=== PATIENT | female | born 1960 | race Caucasian/White ===

== ENCOUNTER 2020-06-26 07:30 | Emergency (ER) | payer OTHER ==
--- NOTE | 2020-06-26 07:39 | ED Physician Documentation ---
PD HPI FEMALE - Stated complaint Stated Complaint: FEMALE - History obtained from History obtained from: Patient - History of Present Illness Timing - onset: Today, Last night Timing - details: Abrupt onset Associated symptoms: Dysuria, Hematuria. No: Fever Contributing factors: No: Exposed to STD Similar symptoms before: Diagnosis (infrequent UTIs) Recently seen: Clinic (10 days ago, had similar symptoms without as much blood in seen at an urgent care in [place]. Prescribed Macrobid twice daily for a week and was improved and now symptoms back again after 3 days off the antibiotic.) Review of Systems Constitutional: denies: Fever, Chills, Myalgias GI: reports: Nausea. denies: Vomiting, Diarrhea : reports: Dysuria, Hematuria. denies: Discharge PD PAST MEDICAL HISTORY - Past Medical History Cardiovascular: None Respiratory: None Endocrine/Autoimmune: None GI: None - Present Medications Home Medications: Ambulatory Orders Medication Instructions Recorded Confirmed Cephalexin [Keflex] 500 mg PO TID #20 capsule 06/26/20 Phenazopyridine HCl [Pyridium] 100 mg PO TID PRN #15 tablet 06/26/20 - Allergies Allergies/Adverse Reactions: Allergies Allergy/AdvReac Type Severity Reaction Status Date / Time Sulfa (Sulfonamide Allergy Hives Verified 06/26/20 07:47 Antibiotics) PD ED PE NORMAL - Vitals Vital signs reviewed: Yes - General General: Alert and oriented X 3, No acute distress, Well developed/nourished - Abdomen Abdomen: Soft, Non tender - Back Back: No CVA TTP - Derm Derm: Normal color, Warm and dry - Extremities Extremities: No deformity, Normal ROM s pain - Neuro Neuro: Alert and oriented X 3, No motor deficit, Normal speech Results - Vitals Vitals: Vital Signs - 24 hr 06/26/20 06/26/20 07:43 07:49 Temperature 36.4 C L 36.4 C L Heart Rate 63 65 Respiratory 16 16 Rate Blood Pressure 145/84 H 145/84 H O2 Saturation 100 100 Oxygen O2 Source Room air - Labs Labs: Laboratory Tests 06/26/20 07:50 Urine Color RED/BLOODY Urine Clarity CLOUDY Urine pH 7.5 Ur Specific [place] 1.010 Urine Protein 100 H Urine Glucose (UA) NEGATIVE Urine Ketones NEGATIVE Urine Occult Blood LARGE H Urine Nitrite POSITIVE H Urine Bilirubin NEGATIVE Urine Urobilinogen 0.2 (NORMAL) Ur Leukocyte Esterase LARGE H Urine RBC 11-25 H Urine WBC >25 H Ur Squamous Epith Cells NONE SEEN Urine Bacteria Few Ur Microscopic Review INDICATED Urine Culture Comments INDICATED PD MEDICAL DECISION MAKING - ED course Complexity details: reviewed old records (Culture results from the urgent care she was initially seen. It was E. coli greater than 100,000 and sensitive to cephalosporins), reviewed results, d/w patient Departure - Departure Disposition: 01 Home, Self Care Clinical Impression: Recurrent UTI Condition: Stable Record reviewed to determine appropriate education?: Yes Instructions: ED UTI Cystitis Female Prescriptions: Cephalexin [Keflex] 500 mg PO TID #20 capsule Phenazopyridine HCl [Pyridium] 100 mg PO TID PRN #15 tablet PRN Reason: Abdominal Pain Comments: Well-hydrated. Small frequent fluids. You can use anti-inflammatory such as ibuprofen or naproxen for discomfort and pain. Phenazopyridine also helps with the urinary discomfort by numbing the bladder and urethra. I will turn your urinal orange-colored so not to worry. Your urine test today does show persistent signs of infection so does seem to be the cause of the discomfort and bleeding. We will change to cephalexin antibiotic 3 times a day for a week. I would anticipate improvement within 2 to 3 days.
[2020-06-26 08:05] LABS: GLUCOSE, URINE (UA) NEGATIVE (NEGATIVE); KETONES,URINE (UA) NEGATIVE (NEGATIVE); LEUKOCYTE ESTERASE, URINE LARGE (NEGATIVE); NITRITE,URINE POSITIVE (NEGATIVE); OCCULT BLOOD,URINE LARGE (NEGATIVE); PH,URINE 7.5 PH (5.0-7.5); PROTEIN,URINE 100 mg/dL (NEGATIVE); UROBILINOGEN,URINE 0.2 (NORMAL) E.U./dL (NORMAL)
[2020-06-26 08:06] LABS: CLARITY,URINE CLOUDY (CLEAR)
[2020-06-26 08:11] LABS: BILIRUBIN,URINE NEGATIVE (NEGATIVE); ICTOTEST,URINE NEGATIVE
[2020-06-26 08:20] LABS: BACTERIA,URINE Few /HPF (None Seen); SQUAMOUS EPITHELIAL CELL,UR NONE SEEN (<= Few)
[2020-06-26] MEDS ORDERED: ONDANSETRON ODT 4 MG TABLET TL STA (08:31)
[2020-06-26] MEDS ORDERED: PHENAZOPYRIDINE 100 MG TABLET PO STA (08:31)
[2020-06-26] MEDS ORDERED: cephALEXin 250 MG CAPSULE PO STA (08:38)
[2020-06-26 08:51] VITALS: BP 144/78
== END 2020-06-26 08:51 | disposition home or self-care (01) ==
LOC: ED 07:30
DX: N39.0 Urinary tract infection, site not specified (principal); B96.20 Unspecified Escherichia coli [E. coli] as the cause of diseases classified elsewhere
CPT/HCPCS: 81001; 87086; 99283; A9270; Q0162; 81003